=== PATIENT | female | born 1940 | race Caucasian/White ===

== ENCOUNTER 2018-03-16 05:30 | Day surgery (SDC) | payer MEDICARE ==
[2018-03-15 13:47] VITALS: BP 130/78
[2018-03-15 14:08] LABS: BASOPHILS % (AUTO) 0.6 % (0.0-5.0); EOSINOPHILS % (AUTO) 3.2 % (0.0-8.0); HEMATOCRIT 41.5 % (36-48); LYMPHOCYTES % (AUTO) 25.1 % (21.0-51.0); MEAN CORPUSCULAR HEMOGLOBIN 30.5 pg (27.0-33.0); MEAN CORPUSCULAR HGB CONC 33.4 g/dL (32.0-36.0); MEAN CORPUSCULAR VOLUME 91.4 fL (79-99); MONOCYTES % (AUTO) 7.1 % (3.0-13.0); PLATELET COUNT (AUTO) 270 K/uL (130-400); RED BLOOD CELL COUNT(AUTO) 4.54 MIL/uL (4.00-5.50); RED CELL DISTRIBUTION WIDTH 14.6 % (11.0-15.5)
[2018-03-15 14:23] LABS: POTASSIUM 3.9 mmol/L (3.5-5.1)
[2018-03-16] VITALS (13 sets, daily range): BP systolic 125–160; BP diastolic 50–80
[~2018-03-16] VITALS: Ht 165.1 cm; Wt 112.9 kg
[~2018-03-16 05:30] MED LIST: AMLO2.5T2 PO
[2018-03-16] MEDS ORDERED: MIDAZOLAM HCL 1 MG/ML 2ML VIAL ONE (06:50)
[2018-03-16] MEDS ORDERED: LIDOCAINE PF 2% 5ML ABBOJECT ONE ×2 (06:50→07:40)
[2018-03-16] MEDS ORDERED: PROPOFOL 10 MG/ML 20ML VIAL IV ONE ×2 (06:50→07:17)
[2018-03-16] MEDS ORDERED: DEXAMETHASONE SOD PHOSPHATE 10MG/ML 1ML VIAL ONE (06:50)
[2018-03-16] MEDS ORDERED: GLYCOPYRROLATE 0.2 MG/ML 5 ML VIAL ONE ×2 (06:50→07:40)
[2018-03-16] MEDS ORDERED: FENTANYL CITRATE PF 50 MCG/1 ML 2ML VIAL ONE ×2 (06:50→07:15)
[2018-03-16] MEDS ORDERED: NEOSTIGMINE 5MG/5ML SYR IV ONE ×2 (06:50→07:40)
[2018-03-16] MEDS ORDERED: HYDR25TA PO (07:12)
[2018-03-16] MEDS ORDERED: [UNRECOGNIZED DRUG - OTHER] PO (07:12)
[2018-03-16] MEDS ORDERED: FENO135C4 PO (07:12)
[2018-03-16] MEDS ORDERED: DIPERA PO (07:12)
[2018-03-16] MEDS ORDERED: OMEG-53 PO (07:12)
[2018-03-16] MEDS ORDERED: MIRA50TA PO (07:12)
[2018-03-16] MEDS ORDERED: ACET-2041 PO (07:12)
[2018-03-16] MEDS ORDERED: SUCR1TAB2 PO (07:12)
[2018-03-16] MEDS ORDERED: LOSA100T29 PO (07:12)
[2018-03-16] MEDS ORDERED: CART1TAB4 PO (07:12)
[2018-03-16] MEDS ORDERED: GABA-531 PO (07:12)
[2018-03-16] MEDS ORDERED: UBID100C45 PO (07:12)
[2018-03-16] MEDS ORDERED: LEG CRAMPS PM PO (07:12)
[2018-03-16] MEDS ORDERED: METOPROLOL ER PO (07:12)
[2018-03-16] MEDS ORDERED: LACTATED RINGERS 1000ML 1,000 ML IV ONE (07:15)
[2018-03-16] MEDS ORDERED: SUCCINYLCHOLINE CHLORIDE 20 MG/ML 10 ML VIAL ONE (07:40)
[2018-03-16] MEDS ORDERED: MEPERIDINE-PF 50 MG/ML SYG ONE (07:57)
== END 2018-03-16 10:15 | disposition home or self-care (01) ==
LOC: DAH 05:30
PROVIDERS: ATTEND Obstetrics & Gynecology
DX: N95.0 Postmenopausal bleeding (principal); N88.2 Stricture and stenosis of cervix uteri; E03.9 Hypothyroidism, unspecified; E78.5 Hyperlipidemia, unspecified; I11.0 Hypertensive heart disease with heart failure; I50.22 Chronic systolic (congestive) heart failure; K21.9 Gastro-esophageal reflux disease without esophagitis; G47.30 Sleep apnea, unspecified; Z85.828 Personal history of other malignant neoplasm of skin; Z90.49 Acquired absence of other specified parts of digestive tract; Z98.890 Other specified postprocedural states; Z98.84 Bariatric surgery status; Z82.49 Family history of ischemic heart disease and other diseases of the circulatory system; Z79.899 Other long term (current) drug therapy; Z68.41 Body mass index [BMI] 40.0-44.9, adult; E66.01 Morbid (severe) obesity due to excess calories
CPT/HCPCS: 36415; 58120; 80048; 85025; 86850; 86900; 86901; 88305; A4315; A4510; A4600; J0330; J1100; J2001 ×2; J2175; J2250; J2704 ×2; J2710 ×2; J3010 ×2; J3490 ×2; J7120; 93005

== ENCOUNTER 2018-06-07 20:36 | Observation (INO) | payer MEDICARE ==
[~2018-06-07] VITALS: Ht 165.1 cm; Wt 108.9 kg
[~2018-06-07 20:36] MED LIST changes: +ACET-2041 PO; +CART1TAB4 PO; +DIPERA PO; +FENO135C4 PO; +GABA-531 PO; +HYDR25TA PO; +LEG CRAMPS PM PO; +LOSA100T20 PO; +METOPROLOL ER PO; +MIRA50TA PO; +OMEG-53 PO; +SUCR1TAB2 PO; +UBID100C45 PO; +[UNRECOGNIZED DRUG - OTHER] PO
[2018-06-07 21:23] LABS: BASOPHILS % (AUTO) 1.2 % (0.0-5.0); LYMPHOCYTES % (AUTO) 28.2 % (21.0-51.0); MEAN CORPUSCULAR HEMOGLOBIN 30.4 pg (27.0-33.0); MEAN CORPUSCULAR HGB CONC 33.5 g/dL (32.0-36.0); MEAN CORPUSCULAR VOLUME 90.7 fL (79-99); MONOCYTES % (AUTO) 10.3 % (3.0-13.0); NEUTROPHILS % (AUTO) 58.3 % (40.0-77.0); NUCLEATED RED BLOOD CELLS 0.1 % (0.0-0.19); PLATELET COUNT (AUTO) 134 K/uL (130-400); RED CELL DISTRIBUTION WIDTH 14.3 % (11.0-15.5); WHITE BLOOD COUNT (AUTO) 7.5 K/uL (4.8-10.8)
[2018-06-07] MEDS ORDERED: IPRATROPIUM/ALBUTEROL SULFATE 3 ML SOLUTION IH ONE (21:28)
[2018-06-07] MEDS ORDERED: DiphenhydrAMINE HCL 50 MG/ML VIAL ONE (21:30)
[2018-06-07] MEDS ORDERED: METHYLPREDNISOLONE SOD SUCC 125MG/2ML VIAL ONE (21:30)
[2018-06-07] MEDS ORDERED: FAMOTIDINE/PF 20 MG/2 ML VIAL IV ONE (21:30)
[2018-06-07 21:49] LABS: RAPID GROUP A STREP NEGATIVE (NEGATIVE)
[2018-06-08] MEDS ORDERED: ACETAMINOPHEN ELIXIR 650 MG/20.3 ML UDCUP ONE (00:39)
[2018-06-08 01:00] VITALS: BP 136/58
[2018-06-08] MEDS ORDERED: ACETAMINOPHEN 325 MG TAB PO PRN ×2 (01:45→04:00)
[2018-06-08] MEDS ORDERED: TRAMADOL HCL 50 MG TABLET PO ONE (01:45)
[2018-06-08] MEDS ORDERED: ASPI-555 PO (01:58)
[2018-06-08] MEDS ORDERED: TRAMADOL HCL 50 MG TABLET ONE (02:50)
[2018-06-08 03:50] VITALS: BP 126/93
[2018-06-08] MEDS: IPRATROPIUM/ALBUTEROL SULFATE 3 ML SOLUTION IH SCH ×2 (06:02→11:08)
[2018-06-08 08:00] VITALS: BP 131/69
[2018-06-08] MEDS ORDERED: FAMOTIDINE/PF 20 MG/2 ML VIAL IV SCH (09:00)
[2018-06-08] MEDS ORDERED: METHYLPREDNISOLONE SOD SUCC 40MG/ML 1ML IVP SCH (09:00)
[2018-06-08 11:00] VITALS: BP 125/65
== END 2018-06-08 15:09 | disposition home or self-care (01) ==
LOC: EDH 20:36 → EDHIP 23:51 → 3CH 06-08 00:29
PROVIDERS: ADMIT Internal Medicine Nephrology; ATTEND Internal Medicine Nephrology
DX: J02.9 Acute pharyngitis, unspecified (principal); J04.0 Acute laryngitis; I10 Essential (primary) hypertension; Z90.49 Acquired absence of other specified parts of digestive tract; Z87.891 Personal history of nicotine dependence; Z79.899 Other long term (current) drug therapy; Z95.2 Presence of prosthetic heart valve
CPT/HCPCS: 36415; 70360; 71045; 74178; 85025; 87804 ×2; 87880; 93005; 94640 ×3; 94664; 96374; 96375; 99285; G0378 ×15; J1200; J2920; J2930; J3490 ×2; Q9967

== ENCOUNTER 2018-11-12 06:35 | Day surgery (SDC) | payer MEDICARE ==
[~2018-11-12] VITALS: Ht 167.6 cm; Wt 110.5 kg
[~2018-11-12 06:35] MED LIST changes: -ACET-2041 PO; +ASPI-555 PO; -DIPERA PO; -LEG CRAMPS PM PO; -LOSA100T20 PO; +LOSA100T58 PO; +SODIUM CHLORIDE 0.9% 1000ML 1,000 ML IV ONE
[2018-11-12 07:15] VITALS: BP 142/59
[2018-11-12] MEDS ORDERED: PROPOFOL 10 MG/ML 20ML VIAL IV ONE (08:21)
[2018-11-12 08:31] VITALS: BP 110/34
[2018-11-12 08:36] VITALS: BP 102/31
[2018-11-12 08:42] VITALS: BP 124/62
== END 2018-11-12 09:06 | disposition home or self-care (01) ==
LOC: DAH 06:35 → ENDO 06:35
PROVIDERS: ATTEND Internal Medicine
DX: D12.4 Benign neoplasm of descending colon (principal); K63.5 Polyp of colon; Z86.010 Personal history of colon polyps; K64.8 Other hemorrhoids; K57.30 Diverticulosis of large intestine without perforation or abscess without bleeding; K21.9 Gastro-esophageal reflux disease without esophagitis; F41.9 Anxiety disorder, unspecified; I35.0 Nonrheumatic aortic (valve) stenosis; E66.9 Obesity, unspecified; Z85.828 Personal history of other malignant neoplasm of skin; Z68.38 Body mass index [BMI] 38.0-38.9, adult; Z79.899 Other long term (current) drug therapy; Z80.0 Family history of malignant neoplasm of digestive organs; Z95.1 Presence of aortocoronary bypass graft; Z98.890 Other specified postprocedural states; Z98.49 Cataract extraction status, unspecified eye; I10 Essential (primary) hypertension
CPT/HCPCS: 45380; 88305; 93005; A4606; J2704; J7030